=== PATIENT | female | born 1940 | race Caucasian/White ===

== ENCOUNTER 2020-11-18 09:03 | Outpatient (CLI) | payer MEDICARE ==
--- NOTE | 2020-11-18 09:32 | RAD ---
2 VIEW CHEST: Date: 11/18/2020 HISTORY: Dyspnea. FINDINGS: Lungs show no evidence of infiltrate or vascular congestion. Scattered calcified granuloma. Calcified hilar lymph nodes. Aortic calcification. Vascular markings normal. Osseous structures show degenerat rocio spine changes. Bilateral shoulder prostheses. IMPRESSION: No acute infiltrate. Chronic findings as described. POS: [facility]
== END 2020-11-18 09:04 | disposition home or self-care (01) ==
LOC: BICRAD 09:03
PROVIDERS: ATTEND Internal Medicine Pulmonary Disease
DX: R06.00 Dyspnea, unspecified (principal); J84.10 Pulmonary fibrosis, unspecified; I70.0 Atherosclerosis of aorta; Z96.611 Presence of right artificial shoulder joint; Z96.612 Presence of left artificial shoulder joint
CPT/HCPCS: 71046

== ENCOUNTER 2025-09-17 09:33 | Outpatient (CLI) | payer OTHER | END 2025-09-17 09:34 | disposition home or self-care (01) | LOC: SCSBT 09:33 | PROVIDERS: ATTEND Internal Medicine | DX: Z13.820 Encounter for screening for osteoporosis (principal); Z78.0 Asymptomatic menopausal state; M85.851 Other specified disorders of bone density and structure, right thigh; M85.852 Other specified disorders of bone density and structure, left thigh | CPT/HCPCS: 77080 ==